=== PATIENT | male | born 2000 | race Hispanic/Latino ===

== ENCOUNTER 2024-04-21 17:38 | Emergency (ER) | payer SELFPAY ==
[~2024-04-21] VITALS: Ht 182.9 cm; Wt 68.0 kg
[2024-04-21 18:15] LABS: BASOPHILS # (AUTO) 0.05 K/uL (0.00-0.20); BASOPHILS % (AUTO) 0.6 % (0.0-5.0); EOSINOPHILS % (AUTO) 1.3 % (0.0-8.0); HEMATOCRIT 42.5 % (42-54); IMMATURE GRANULOCYTE ABSOLUTE 0.02 K/uL (0-1); LYMPHOCYTES % (AUTO) 38.7 % (21.0-51.0); MEAN CORPUSCULAR HEMOGLOBIN 30.6 pg (27.0-33.0); MEAN CORPUSCULAR HGB CONC 36.7 g/dL (32.0-36.0); MEAN CORPUSCULAR VOLUME 83.5 fL (79-99); MONOCYTES # (AUTO) 0.5 K/uL (0.1-1.0); MONOCYTES % (AUTO) 6.2 % (3.0-13.0); NEUTROPHILS # (AUTO) 4.1 K/uL (1.8-7.7); NEUTROPHILS % (AUTO) 52.9 % (40.0-77.0); PLATELET COUNT (AUTO) 313 K/uL (130-400); RED BLOOD CELL COUNT(AUTO) 5.09 MIL/uL (4.50-6.20); RED CELL DISTRIBUTION WIDTH 12.5 % (11.0-15.5); WHITE BLOOD COUNT (AUTO) 7.7 K/uL (4.8-10.8)
[2024-04-21 18:24] LABS: POTASSIUM 3.4 mmol/L (3.5-5.1)
[2024-04-21 18:29] LABS: ALBUMIN 4.3 g/dL (3.5-5.0); BILIRUBIN,TOTAL 0.5 mg/dL (0.2-1.0); TOTAL PROTEIN, SERUM 7.9 g/dL (6.0-8.3)
[2024-04-21] MEDS ORDERED: IOHEXOL-350 75 ML VIAL IV ONE (18:34)
[2024-04-21] MEDS: LACTATED RINGERS 1000ML 1,000 ML IV STA (18:54)
[2024-04-21 19:49] VITALS: BP 128/74; PULSE 76; RESP 20; TEMP 98.6; O2SAT 100
== END 2024-04-21 20:22 | disposition home or self-care (01) ==
LOC: EDH 17:38
DX: K92.2 Gastrointestinal hemorrhage, unspecified (principal); F10.10 Alcohol abuse, uncomplicated; F90.9 Attention-deficit hyperactivity disorder, unspecified type; Y90.8 Blood alcohol level of 240 mg/100 ml or more
CPT/HCPCS: 99283; 96360; 80053; 85025; 86850; 86900; 86901; 36415; J7120; Q9967

== ENCOUNTER 2024-11-01 15:34 | Emergency (ER) | payer BC ==
[~2024-11-01] VITALS: Ht 180.3 cm; Wt 72.6 kg
[2024-11-01 15:53] LABS: BASOPHILS # (AUTO) 0.06 K/uL (0.00-0.20); BASOPHILS % (AUTO) 0.6 % (0.0-5.0); EOSINOPHILS # (AUTO) 0.17 K/uL (0.00-0.70); EOSINOPHILS % (AUTO) 1.8 % (0.0-8.0); IMMATURE GRANULOCYTE ABSOLUTE 0.05 K/uL (0-1); LYMPHOCYTES % (AUTO) 42.7 % (21.0-51.0); MEAN CORPUSCULAR HEMOGLOBIN 31.6 pg (27.0-33.0); MEAN CORPUSCULAR VOLUME 87.6 fL (79-99); MONOCYTES # (AUTO) 0.4 K/uL (0.1-1.0); MONOCYTES % (AUTO) 3.9 % (3.0-13.0); NEUTROPHILS # (AUTO) 4.7 K/uL (1.8-7.7); NEUTROPHILS % (AUTO) 50.5 % (40.0-77.0); PLATELET COUNT (AUTO) 254 K/uL (130-400); RED BLOOD CELL COUNT(AUTO) 4.91 MIL/uL (4.50-6.20); RED CELL DISTRIBUTION WIDTH 12.8 % (11.0-15.5); WHITE BLOOD COUNT (AUTO) 9.3 K/uL (4.8-10.8)
[2024-11-01 16:02] LABS: CARBON DIOXIDE 27 mmol/L (21-32); CHLORIDE 104 mmol/L (101-111); GLOMERULAR FILTR. RATE CALC 109 mL/min (>90); GLUCOSE,RANDOM 118 mg/dL (70-105); POTASSIUM 3.4 mmol/L (3.5-5.1); SODIUM SERUM 146 mmol/L (136-145); UREA NITROGEN, BLOOD 12 mg/dL (7-18)
[2024-11-01 16:08] LABS: ALCOHOL, BLOOD 394 mg/dL (0-10); CREATINE KINASE, TOTAL 238 U/L (21-232)
[2024-11-01 16:13] LABS: ACETAMINOPHEN < 10 mcg/mL (10-29); SALICYLATE < 2.8 mg/dL (2.8-20.0)
[2024-11-01 16:43] LABS: AMPHET/METH SCREEN,URINE NEGATIVE (NEGATIVE); BARBITURATE SCREEN, URINE NEGATIVE (NEGATIVE); BENZODIAZEPINES SCREEN,URINE NEGATIVE (NEGATIVE); CANNABINOID SCREEN,URINE NEGATIVE (NEGATIVE); COCAINE SCREEN,URINE NEGATIVE (NEGATIVE); OPIATE SCREEN,URINE NEGATIVE (NEGATIVE); PHENCYCLIDINE SCREEN,URINE NEGATIVE (NEGATIVE)
[2024-11-01] MEDS ORDERED: LORazepam 2 MG/ML 1 ML VIAL IVP ONE (17:30)
[2024-11-01] MEDS: diazePAM 5 MG/ML 2 ML SYG IVP ONE (18:01)
--- NOTE | 2024-11-01 19:32 | EKG ---
[facility] Test Date: 2024-11-01 Test Time: 17:49:04 Pat Name: KAT MONAE Department: ED Room: Gender: M Parking Enforcement Technician: Student : 2000 Requested By: PAUL TORRES Order Number: [id number] Reading MD: Gina Sheppard Measurements Intervals [place] Rate: 123 P: 58 TX: 154 QRS: 119 QRSD: 103 T: 36 QT: 302 QTc: 432 Interpretive Statements Sinus tachycardia ST elev, probable normal early repol pattern No previous ECG available for comparison Electronically Signed On 11-03-2024 09:33:16 CDT by Gina Sheppard Please click the below link to view image of tracing.
--- NOTE | 2024-11-01 19:40 | NUR ---
SANDWICH AND JUICE GIVEN TO PATIENT, MOTHER AT BEDSIDE.
[2024-11-01] MEDS: 0.9%NACL 1000ML 1,000 ML IV ONE (20:08)
[2024-11-01] MEDS: M.V.I. IV [ADULT] 10 ML, FOLic ACID 5 MG/ML VIAL 1 MG, THIAMINE HCL 100 MG in 0.9%NACL ... IV SCH (21:09)
--- NOTE | 2024-11-01 21:20 | ERN ---
General Chief Complaint: Psych Evaluation Stated Complaint: PSYCH Time Seen by MD: 15:39 Time Seen by Midlevel: 15:39 Source: patient, family (mom) History of Present Illness Initial Comments Patient is a 24-year-old male with a past medical history of alcohol abuse presenting to the emergency department for evaluation of acute alcohol intoxication. The patient was taken to [facility] for admission for alcohol detox. Mom is at bedside. Patient reports last alcoholic drink was earlier today. According to the patient he has been binge drinking for about a month. Upon EMS arrival on scene the patient was found to have a glucose of 69. EMS administered 15 g of p.o. glucose prior to arrival. Patients specifically denies any suicidal ideation or homicidal ideation. He also denies auditory/visual hallucinations. Allergies: Coded Allergies: No Known Drug Allergies (Unverified Allergy, Unknown, 04/21/24) Past Medical History Past Medical History: No Pertinent History Medical History Other: ADHD Past Surgical History: None ROS Dictation CONSTITUTIONAL: Negative except for HPI HEAD/FACE: Negative except for HPI EENT: Negative except for HPI RESPIRATORY: Negative except for HPI GASTROINTESTINAL/ABDOMINAL: Negative except for HPI GENITOURINARY: Negative except for HPI MUSCULOSKELETAL: Negative except for HPI INTEGUMENTARY: Negative except for HPI NEUROLOGICAL/PSYCH: Negative except for HPI HEMATOLOGIC/LYMPHATIC: Negative except for HPI All Systems Negative, Except as noted above. 13 point review of systems assessed and all negative except for above. Physical Exam Physical Exam Dictation Vital Signs reviewed General Appearance: Alert, oriented x 3, no acute distress, anxious appearing Head and Face: non-traumatic. Eyes: PERRL, pink conjunctivas, eyelid no trauma, anterior chamber with arcus senilis. Ears: Pinnas intact and no signs of trauma or erythema ear canals clear and no discharge TM no erythema Nose: No discharge, no bleeding. Oropharynx: Mouth normal, tongue pink, pharynx clear,no erythema, tonsils no exudates, no abscesses noted, mucous membrane moist Neck: Supple, non-tender, no thyromegaly, no masses, no JVD, no bruits Breast:Deferred Chest:No tenderness, no crepitus, no paradoxical movement, no retractions Lungs:Clear, well-ventilated, symmetric, no rales, no wheezing, no rhonchi, no stridor, good breath sounds bilaterally Heart: Tachycardic, regular rhythm, no murmur, no gallops Vascular: no peripheral edema, Abdomen: Soft, positive bowel sounds, nondistended, no guarding, nontender, no rebound, no masses no hepatomegaly, no splenomegaly, no Alonso's sign, no hernias. Rectal: Deferred Genital: Deferred Neurological: Normal speech, motor function intact, sensory function intact Musculoskeletal: Neck nontender, full range of motion, back nontender, full range of motion, Extremities: nontender, full range of motion Skin: Color pink, dry, no turgor, no rash, no lacerations, no abrasions, no contusions. Lymphatic: Deferred Results Laboratory and Microbiology Lab and Micro Result Laboratory Tests Test 11/01/24 15:47 11/01/24 16:24 11/01/24 20:04 11/02/24 01:36 White Blood Count 9.3 K/uL (4.8-10.8) Red Blood Count 4.91 MIL/uL (4.50-6.20) Hemoglobin 15.5 g/dL (14.0-18.0) Hematocrit 43.0 % (42-54) Mean Corpuscular Volume 87.6 fL (79-99) Mean Corpuscular Hemoglobin 31.6 pg (27.0-33.0) Mean Corpuscular Hemoglobin Concent 36.0 g/dL (32.0-36.0) Red Cell Distribution Width 12.8 % (11.0-15.5) Platelet Count 254 K/uL (130-400) Mean Platelet Volume 8.5 fL (7.5-10.5) Immature Granulocyte % (Auto) 0.5 % (0-1) Neutrophils (%) (Auto) 50.5 % (40.0-77.0) Lymphocytes (%) (Auto) 42.7 % (21.0-51.0) Monocytes (%) (Auto) 3.9 % (3.0-13.0) Eosinophils (%) (Auto) 1.8 % (0.0-8.0) Basophils (%) (Auto) 0.6 % (0.0-5.0) Neutrophils # (Auto) 4.7 K/uL (1.8-7.7) Lymphocytes # (Auto) 4.0 K/uL (1.0-4.8) Monocytes # (Auto) 0.4 K/uL (0.1-1.0) Eosinophils # (Auto) 0.17 K/uL (0.00-0.70) Basophils # (Auto) 0.06 K/uL (0.00-0.20) Absolute Immature Granulocyte (auto 0.05 K/uL (0-1) Nucleated Red Blood Cells 0.0 % (0.0-0.19) Sodium Level 146 mmol/L (136-145) H Potassium Level 3.4 mmol/L (3.5-5.1) L Chloride Level 104 mmol/L (101-111) Carbon Dioxide Level 27 mmol/L (21-32) Blood Urea Nitrogen 12 mg/dL (7-18) Creatinine 1.0 mg/dL (0.5-1.3) Glomerular Filtration Rate Calc 109 mL/min (>90) Random Glucose 118 mg/dL (70-105) H Total Calcium 8.8 mg/dL (8.5-10.1) Total Creatine Kinase 238 U/L (21-232) H Salicylates Level < 2.8 mg/dL (2.8-20.0) L Acetaminophen Level < 10 mcg/mL (10-29) L Serum Alcohol 394 mg/dL (0-10) H 278 mg/dL (0-10) H 127 mg/dL (0-10) H Urine Opiates Screen NEGATIVE (NEGATIVE) Urine Barbiturates Screen NEGATIVE (NEGATIVE) Urine Phencyclidine Screen NEGATIVE (NEGATIVE) Urine Amphetamines Screen NEGATIVE (NEGATIVE) Urine Benzodiazepines Screen NEGATIVE (NEGATIVE) Urine Cocaine Screen NEGATIVE (NEGATIVE) Urine Marijuana (THC) Screen NEGATIVE (NEGATIVE) Test 11/02/24 04:37 Serum Alcohol 65 mg/dL (0-10) H Labs Reviewed?: Yes MDM Screen by the psychiatric liaison and she states that he is clear to go to detox. He does not have suicidal ideation he has no plans to harm other people he has no acute psychiatric issues that need to be addressed prior to going to detox and alcohol rehab. Patient's lab blood alcohol level was less than 80. He shows no signs of withdrawal. He is medically cleared to go to acute rehab a nd detox. ED Course Orders Procedure Category Date Status Time Drug Screen Urine LAB 11/01/24 Complete 15:39 Cbc With Differential LAB 11/01/24 Complete 15:39 Alcohol, Blood LAB 11/01/24 Complete 15:39 Salicylate LAB 11/01/24 Complete 15:39 Acetaminophen LAB 11/01/24 Complete 15:39 Creatine Kinase, Total LAB 11/01/24 Complete 15:39 Basic Metabolic Panel LAB 11/01/24 Complete 15:39 12 Lead Ekg Tracing- EKG 11/01/24 Complete Technical 17:30 M.V.I. Iv [Adult] PHA 11/02/24 Complete (M.V.I. Iv [Adult])... 09:00 Lorazepam 2 Mg PHA 11/01/24 Complete (Ativan) 17:30 Diazepam 5 Mg/Ml 2 Ml PHA 11/01/24 Complete Syg (Valium 5 Mg/M 18:00 Alcohol, Blood LAB 11/01/24 Complete 19:56 0.9%Nacl 1000ml (Ns PHA 11/01/24 Complete 1000ml) 20:00 M.V.I. Iv [Adult] PHA 11/01/24 In Process (M.V.I. Iv [Adult])... 21:00 Chlordiazepoxide Hcl PHA 11/01/24 Complete 25 Mg Cap (Librium 22:30 Alcohol, Blood LAB 11/02/24 Complete 01:29 Alcohol, Blood LAB 11/02/24 Complete 03:18 Current Medications Medications (Trade) Dose Ordered Sig/Gina Route PRN Reason Start Time Stop Time Status Last Admin Dose Admin Chlordiazepoxide HCl (LIBrium 25 MG CAP) 25 mg ONCE ONCE PO 11/01/24 22:30 11/01/24 22:31 DC 11/01/24 22:32 Diazepam (VALium 5 MG/ML 2 ML SYG) 10 mg ONCE ONCE IVP 11/01/24 18:00 11/01/24 18:01 DC 11/01/24 18:01 Lorazepam (AtiVAN) 2 mg ONCE ONCE IVP 11/01/24 17:30 11/01/24 17:37 DC Multivitamins/ Minerals 10 ml/ Folic Acid 1 mg/ Thiamine HCl 100 mg/Sodium Chloride 1,010 ml @ 0 mls/hr Q24H IV 11/01/24 21:00 12/01/24 20:59 11/01/24 21:09 Multivitamins/ Minerals 10 ml/ Folic Acid 1 mg/ Thiamine HCl 100 mg/Sodium Chloride 1,010 ml @ 0 mls/hr Q24H IV 11/02/24 09:00 11/01/24 20:25 DC Sodium Chloride 1,000 ml @ 0 mls/hr ONCE ONCE IV 11/01/24 20:00 11/01/24 20:01 DC 11/01/24 20:08 Vital Signs Date Time Temp Pulse Resp B/P (MAP) Pulse Ox O2 Delivery O2 Flow Rate FiO2 11/02/24 03:49 90 18 116/60 97 Room Air* 0 21 11/02/24 01:31 92 18 122/66 97 Room Air* 0 21 11/01/24 23:23 92 18 119/76 98 Room Air* 0 21 11/01/24 21:47 92 18 130/78 98 Room Air* 0 11/01/24 20:32 100 18 143/82 97 Room Air* 0 11/01/24 19:21 18 121/49 Room Air* 0 11/01/24 18:23 109 18 139/82 98 Room Air* 0 11/01/24 16:29 119 18 109/86 98 Room Air* 0 11/01/24 15:36 99.3 138 16 130/76 98 Room Air DX & DISP Disposition: Discharge Departure Impression: Primary Impression: Alcohol abuse Condition: Stable Referrals: SELF,REFERRAL (PCP) I have reviewed the case, and I agree with, Diagnosis and Plan I performed the substantive portion of the visit. I have reviewed and personally made and approve the management plan that is documented in the note by myself or the MARIELA. I acknowledge for responsibility for the patient's management plan. PAUL TORRES Nov 01, 2024 21:20 JUAN TIPTON MD Nov 02, 2024 03:49
[2024-11-01] MEDS: chlordiazePOXIDE HCL 25 MG CAP PO ONE (22:32)
--- NOTE | 2024-11-01 22:48 | NUR ---
WAITING FOR ALCOHOL LEVEL TO COME DOWN AND FOR A PYSCH SCREEN.
[2024-11-02 05:12] VITALS: BP 107/53; PULSE 88; RESP 18; TEMP 98.3; O2SAT 97
--- NOTE | 2024-11-02 05:34 | NUR ---
DISCHARGED, MOTHER AT BEDSIDE.
[2024-11-02] MEDS ORDERED: M.V.I. IV [ADULT] 10 ML, FOLic ACID 5 MG/ML VIAL 1 MG, THIAMINE HCL 100 MG in 0.9%NACL ... IV SCH (09:00)
== END 2024-11-02 05:34 | disposition home or self-care (01) ==
LOC: EDH 15:34
DX: F10.129 Alcohol abuse with intoxication, unspecified (principal); Y90.3 Blood alcohol level of 60-79 mg/100 ml
CPT/HCPCS: 99284; 96365; 96366; 96361; 96375; 82550; 80048; 80305; 85025; 36415 ×2; 93005; G0481; J7030 ×2; J3360; J3411; J3490

== ENCOUNTER 2025-06-05 16:40 | Emergency (ER) | payer BC ==
[~2025-06-05] VITALS: Ht 180.3 cm; Wt 72.6 kg
[2025-06-05] MEDS ORDERED: KETO10TA2 PO (17:20)
--- NOTE | 2025-06-05 17:21 | ERN ---
ED Note History of Present Illness Stated Complaint: LEG INJURY Chief Complaint: Lower Extremity Pain/Injury Time Seen by MD: 16:42 Time Seen by Midlevel: 16:48 Dictation: 25-year-old male coming in with complaints of right thigh pain. Patient states yesterday he was playing kickball when he was going to kick his foot got stuck on the grass and felt a pull in his right thigh. Patient denies falling all the way to the ground. Patient is able to bear weight but states there is pain. Full range of motion, no obvious deformities or abrasion. Allergies: Coded Allergies: No Known Drug Allergies (Unverified Allergy, Unknown, 04/21/24) Past Medical History Past Medical History: No Pertinent History Additional Past Medical Hx: ADHD Surgical History: None Review of System Dictation Constitutional: Negative for fever,chills, and weight loss Eyes: Negative for injury, pain,redness, and discharge ENT: Negative for injury,pain or swelling Cardiovascular: Negative for chest pain, palpitations, and edema Respiratory: Negative for shortness of breath, cough, and wheezing, Abdomen/GI: Negative for abdominal pain, nausea, vomiting, diarrhea, and constipation Back: Negative for injury and pain : Negative for injury, bleeding and discharge MS/Extremity: Negative for injury and deformity, right leg pain Skin: Negative for rash, and discoloration Neuro: Negative for headache, weakness, numbness, tingling, and seizure Psych: Negative for suicide ideation, homicidal ideation, and hallucinations Review of Systems: was completed Initial Vital Sign VS Vital Signs Date Time Temp Pulse Resp B/P (MAP) Pulse Ox O2 Delivery O2 Flow Rate FiO2 06/05/25 16:41 97.3 78 16 152/81 98 Room Air 0 Physical Exam Dictation General: awake, alert, NAD Head/Face: Normocephalic, atraumatic Eyes: PERRL, EOMI, vision at baseline ENT: oral cavity clear, TMs clear, no signs of infection Neck: Trachea midline, supple, no nuchal rigidity Cardiovascular: RRR, normal S1/S2, No MRGs, no JVD Respiratory: CTAB, no respiratory distress, No rales or wheezes Abdomen: Soft, non-tender, non-distended, normal bowel sounds, no guarding or rebound. Skin: Warm, dry, normal turgor, no rash MS/Extremity: Pulses equal, no cyanosis, neurovascular intact, FROM, right thigh pain on palpation Neuro: COAx4, GCS 15, strength 5/5, CN 2-12 intact, normal cerebellar exam, normal gait, Psych: Normal behavior, mood, and affect normal ED Course ED Course Orders Procedure Category Date Status Time Ketorolac PHA 06/05/25 Complete Tromethamine 15mg/Ml 17:00 Methocarbamol PHA 06/05/25 Complete (Methocarbamol) 16:47 Current Medications Medications (Trade) Dose Ordered Sig/Gina Route PRN Reason Start Time Stop Time Status Last Admin Dose Admin Ketorolac Tromethamine (toRADol) 15 mg ONCE ONCE IV 06/05/25 17:00 06/05/25 17:01 DC Methocarbamol (methoCARBamol) 1,000 mg ONCE STAT PO 06/05/25 16:47 06/05/25 16:51 DC Vital Signs Date Time Temp Pulse Resp B/P (MAP) Pulse Ox O2 Delivery O2 Flow Rate FiO2 06/05/25 16:41 97.3 78 16 152/81 98 Room Air 0 Medical Decision Making MDM MDM: 25-year-old male coming in with complaints of right thigh pain. Patient states yesterday he was playing kickball when he was going to kick his foot got stuck on the grass and felt a pull in his right thigh. Patient denies falling all the way to the ground. Patient is able to bear weight but states there is pain. Full range of motion, no obvious deformities or abrasion. Discussed with the patient more than likely this is a muscle strain, needs to follow up outpatient with PCP and possibly ortho or sports Medicine for further evaluation. We will give patient has a inflammatory for a prescription and have patient follow up. Discussed patient on signs and symptoms of when to return back to the ER, he verbalized understanding, answered all questions. Differential diagnosis: Spasm, muscle strain Rationale: Tests considered and ordered secondary to shared decision making include: Previous outside records reviewed: Old ER visits. Risk of complication and/or morbidity or mortality of patient management: None Medications-Per medication reconciliation Need for hospitalization: Patient does not meet criteria for hospitalization. Need for emergency major/minor surgery: No There are no social concerns with this patient. Prescription drug management Prescriptions will include symptomatic care Patient's prior external medical records from other ER visits were reviewed by me as indicated. Prior testing and results from previous visits were reviewed. Prior tests were taken into account with medical decision making and resource utilization, independent historian/historians were used to obtain complete medical history. I independently interpreted the test that were performed, results were reviewed by me and considered findings on radiology if ordered. Medical management and examination interpretation discussions were had by me with other qualified healthcare professionals as indicated for the patient's care. DX & DISP Disposition: Discharge Departure Impression: Primary Impression: Muscle strain Condition: Stable Scripts Ketorolac Tromethamine (Ketorolac Tromethamine) 10 Mg Tablet 1 TAB PO Q6HPRN PRN for pain for 5 Days, #20 TAB 0 Refills Prov: TILA ROBERTSON CNP 06/05/25 Additional Instructions: You can ice and add warm compresses to help with the pain and inflammation. Take medications as prescribed. You can add Tylenol to the prescription that I will give you in case he needs additional pain management. Follow up with your PCP as you might need further evaluation by an orthopedic or sports Medicine. Referrals: SELF,REFERRAL (PCP) Time of Disposition: 17:20 I have reviewed the case, and I agree with, Diagnosis and Plan TILA ROBERTSON CNP Jun 05, 2025 17:21
[2025-06-05 17:28] VITALS: BP 139/82; PULSE 67; RESP 18; TEMP 98.6; O2SAT 99
== END 2025-06-05 18:07 | disposition home or self-care (01) ==
LOC: EDH 16:40
DX: S76.911A Strain of unspecified muscles, fascia and tendons at thigh level, right thigh, initial encounter (principal); X58.XXXA Exposure to other specified factors, initial encounter; Y93.89 Activity, other specified; Y92.89 Other specified places as the place of occurrence of the external cause; Y99.8 Other external cause status
CPT/HCPCS: 99284; 96374; J1885